=== PATIENT | female | born 1985 | race African-American/Black ===

== ENCOUNTER 2019-10-29 01:06 | Emergency (ER) | payer MEDICAID, OTHER ==
[~2019-10-29] VITALS: Ht 175.3 cm; Wt 67.6 kg
[~2019-10-29 01:06] MED LIST: TRAM50TA2 PO
[2019-10-29 01:55] LABS: Urine Bacteria FEW /hpf (None Seen); Urine Blood Negative /uL (Negative); Urine Specific Gravity 1.003 (1.001-1.035); Urine WBC <1 /hpf (0 - 5)
[2019-10-29 02:17] LABS: Basophils # (auto) 0 uL; Basophils % (auto) 0.6 % (0.0-2.0); Eosinophils # (auto) 0.1 uL; Monocytes # (auto) 0.4 uL
[2019-10-29 02:19] LABS: Eosinophils % (auto) 1.6 % (0.0-7.0); Hematocrit 29.8 % (36.0-46.0); Hemoglobin 9.8 g/dL (12.2-16.2); Lymphocytes # (auto) 2.1 uL; Lymphocytes % (auto) 48.4 % (10.0-50.0); Mean Corpuscular Hemoglobin 21.3 pg (28.0-32.0); Mean Corpuscular Volume 64.6 fL (80.0-100.0); Monocytes % (auto) 9.7 % (0.0-12.0); Neutrophils # (auto) 1.7 uL; Neutrophils % (auto) 39.7 % (37.0-80.0); Platelet Count (auto) 470 10^3/uL (140-450); Red Blood Cells 4.61 10^6/uL (4.0-5.20); Red Cell Distribution Width 18.4 % (11.8-14.3); White Blood Cell 4.3 10^3/uL (4.4-10.8)
[2019-10-29 03:16] LABS: Alanine Aminotransferase 13 U/L (13-56); Anion Gap 10 (5-15); Aspartate Aminotransferase 13 U/L (15-37); BUN/Creatinine Ratio 7.2; Blood Urea Nitrogen 6 mg/dL (7-18); Calcium 8.5 mg/dL (8.5-10.1); Carbon Dioxide 22 mmol/L (21-32); Chloride 106 mmol/L (98-107); GFR African American 101 mL/min; GFR Non-African American 84 mL/min; Glucose 99 mg/dL (74-106); Potassium 3.4 mmol/L (3.5-5.1); Sodium 138 mmol/L (136-145)
[2019-10-29 03:22] LABS: Alkaline Phosphatase 40 U/L (45-117); Bilirubin, Total 0.3 mg/dL (0.2-1.0); Total Protein 7.9 g/dL (6.4-8.2)
[2019-10-29] MEDS ORDERED: MECLIZINE HCL 25 MG TAB PO ONE (08:00)
[2019-10-29 09:54] VITALS: BP 110/69
== END 2019-10-29 09:54 | disposition home or self-care (01) ==
LOC: ER 01:06
DX: R42 Dizziness and giddiness (principal); R07.89 Other chest pain; R06.02 Shortness of breath; R51 Headache; R53.83 Other fatigue
CPT/HCPCS: 36415; 70450; 71046; 80053; 81001; 84484; 85025; 93005; 99284; J8597

== ENCOUNTER 2020-11-24 21:26 | Emergency (ER) | payer MEDICAID ==
[~2020-11-24] VITALS: Ht 175.3 cm; Wt 68.0 kg
[2020-11-24 22:47] LABS: Urine Bacteria NONE SEEN /hpf (None Seen); Urine Blood 1+ /uL (Negative); Urine Mucus FEW (None Seen); Urine Specific Gravity 1.027 (1.001-1.035); Urine WBC 4 /hpf (0 - 5)
[2020-11-24 23:16] LABS: Hematocrit 30.4 % (36.0-46.0); Hemoglobin 9.9 g/dL (12.2-16.2); Mean Corpuscular Hemoglobin 22.5 pg (28.0-32.0); Mean Corpuscular Hgb Conc. 32.5 g/dL (32.0-36.0); Mean Corpuscular Volume 69.2 fL (80.0-100.0); Platelet Count (auto) 405 10^3/uL (140-450); Red Cell Distribution Width 19.3 % (11.8-14.3); White Blood Cell 5.2 10^3/uL (4.4-10.8)
[2020-11-24 23:20] LABS: Basophils % (manual) 0 (0.0-2.0); Blast Cells 0; Metamyelocytes % 0; Myelocytes % 0; Promyelocytes % 0; Reactive Lymphocytes 0
[2020-11-24 23:30] LABS: Calcium 9.4 mg/dL (8.5-10.1); Potassium 3.5 mmol/L (3.5-5.1)
[2020-11-24 23:33] LABS: Bilirubin, Total 0.3 mg/dL (0.2-1.0)
[2020-11-25 00:33] LABS: Band Neutrophils % (manual) 1; Eosinophils % (manual) 1 (0-7); Lymphocytes % (manual) 45 (10.0-50.0); Monocytes % (manual) 12 (0-12)
[2020-11-25] MEDS ORDERED: ACETAMINOPHEN 325 MG TAB PO ONE (05:00)
[2020-11-25 05:59] VITALS: BP 135/76
[2020-11-25] MEDS ORDERED: cefTRIAXone SODIUM 250 MG VL IM ONE (08:15)
== END 2020-11-25 09:21 | disposition home or self-care (01) ==
LOC: ER 21:27
DX: D27.0 Benign neoplasm of right ovary (principal); D64.9 Anemia, unspecified; N39.0 Urinary tract infection, site not specified; F17.210 Nicotine dependence, cigarettes, uncomplicated; Z88.0 Allergy status to penicillin
CPT/HCPCS: 36415; 70450; 76830; 76856; 80053; 81001; 81025; 85007; 85027; 96372; 99285; J0696